=== PATIENT | female | born 1995 | race Two or more races ===

== ENCOUNTER 2022-06-15 00:29 | Emergency (ER) | payer MEDICAID, OTHER ==
[2022-06-15 02:09] LABS: Basophils # (auto) 0 10 ^3/uL (0-0.2); Basophils % (auto) 0.6 % (0.0-2.0); Eosinophils # (auto) 0 10 ^3/uL (0-0.8); Eosinophils % (auto) 0.6 % (0.0-7.0); Hematocrit 42.8 % (36.0-46.0); Hemoglobin 14.5 g/dL (12.2-16.2); Lymphocytes # (auto) 1.2 10 ^3/uL (0.4-5.4); Lymphocytes % (auto) 22.3 % (10.0-50.0); Mean Corpuscular Volume 88.5 fL (80.0-100.0); Monocytes # (auto) 0.8 10 ^3/uL (0-1.3); Monocytes % (auto) 14.1 % (0.0-12.0); Neutrophils # (auto) 3.4 10 ^3/uL (1.6-8.6); Neutrophils % (auto) 62.4 % (37.0-80.0); Nucleated Red Blood Cells % 0.2 %; Red Blood Cells 4.83 10^6/uL (4.0-5.20); Red Cell Distribution Width 14.7 % (11.8-14.3); White Blood Cell 5.4 10^3/uL (4.4-10.8)
[2022-06-15 02:26] LABS: Albumin 3.5 g/dL (3.4-5.0); BUN/Creatinine Ratio 16.1; Potassium 3.1 mmol/L (3.5-5.1); Salicylate 4.2 mg/dL (2.8-20.0)
[2022-06-15 02:29] LABS: Bilirubin, Total 0.2 mg/dL (0.2-1.0); Total Protein 7.5 g/dL (6.4-8.2)
[2022-06-15 02:30] LABS: Acetaminophen < 2.0 ug/mL (10-30)
[2022-06-15] MEDS ORDERED: THIAMINE 100mg/ml INJ (200mg/2ml VIAL) IV ONE (09:45)
[2022-06-15] MEDS ORDERED: SODIUM CHLORIDE 0.9% 1,000 ML IV ONE ×2 (09:45)
[2022-06-15 09:52] VITALS: BP 100/71
== END 2022-06-15 18:28 | disposition left against medical advice (07) ==
LOC: ER 00:29 → EDBD 00:29 → ER 18:28
DX: F10.129 Alcohol abuse with intoxication, unspecified (principal); Z59.00 Homelessness unspecified; Y90.7 Blood alcohol level of 200-239 mg/100 ml
CPT/HCPCS: 36415; 80053; 80320; 80329; 84702; 85025; 96361; 96374; 99283; J3411; J7030